=== PATIENT | male | born 1970 | race Caucasian/White ===

== ENCOUNTER 2019-05-18 08:28 | Outpatient (CLI) | payer OTHER ==
[2019-05-18 12:26] LABS: BASOPHILS # (AUTO) 0.1 10^3/uL (0.0-0.1); BASOPHILS % (AUTO) 1.2 %; EOSINOPHILS # (AUTO) 0.4 10^3/uL (0.0-0.7); HGB - HEMOGLOBIN 15.8 g/dL (14.0-18.0); LYMPHOCYTES # (AUTO) 1.8 10^3/uL (1.5-3.5); LYMPHOCYTES % (AUTO) 31.5 %; MEAN CORPUSCULAR HEMOGLOBIN 30.6 pg (27.0-31.0); MEAN CORPUSCULAR HGB CONC 32.5 g/dL (32.0-36.0); MEAN PLATELET VOLUME 9.7 fL (7.4-11.4); MONOCYTES # (AUTO) 0.4 10^3/uL (0.0-1.0); MONOCYTES % (AUTO) 6.3 %; NEUTROPHILS # (AUTO) 3.2 10^3/uL (1.5-6.6); NEUTROPHILS % (AUTO) 54.3 %; PLT - PLATELET COUNT 336 10^3/uL (130-450); RED BLOOD COUNT 5.17 10^6/uL (4.70-6.10); RED CELL DISTRIBUTION WIDTH 13.1 % (12.0-15.0); WHITE BLOOD COUNT 5.8 x10^3/uL (4.8-10.8)
[2019-05-18 12:48] LABS: HB2 TOTAL 16.4 g/dL; HEMOGLOBIN A1C 0.71 g/dL; HEMOGLOBIN A1C % 6.1 % (4.6-6.2)
[2019-05-18 12:56] LABS: ALBUMIN 4.4 g/dL (3.2-5.5); ALBUMIN/GLOBULIN RATIO 1.4 (1.0-2.2); ALKALINE PHOSPHATASE 55 IU/L (42-121); ALT ALANINE AMINOTRANSFERASE 29 IU/L (10-60); AST ASPARTATE AMINOTRANSFERASE 22 IU/L (10-42); BILIRUBIN,TOTAL 0.6 mg/dL (0.2-1.0); BUN - BLOOD UREA NITROGEN 13 mg/dL (6-20); CALCIUM 9.3 mg/dL (8.5-10.3); CARBON DIOXIDE - CO2 25 mmol/L (21-32); CHLORIDE 104 mmol/L (101-111); CHOL/HDL RATIO 4.4 (<5.0); CHOLESTEROL 145 mg/dL; CREATININE 0.8 mg/dL (0.6-1.2); GFR - MDRD 104 (>89); GLUCOSE 117 mg/dL (70-100); HDL CHOLESTEROL 33 mg/dL; LDL CHOLESTEROL,CALCULATED 89 mg/dL; LDL/HDL RATIO 2.7 (<3.6); SODIUM 138 mmol/L (135-145); TOTAL PROTEIN 7.5 g/dL (6.7-8.2); VLDL CHOLESTEROL 23 mg/dL
[2019-05-18 15:33] LABS: LITHIUM 0.32 mmol/L
== END 2019-05-18 23:59 | disposition home or self-care (01) ==
LOC: LAB.N 08:28
PROVIDERS: ATTEND Physician Assistant Medical
DX: Z00.00 Encounter for general adult medical examination without abnormal findings (principal); E11.9 Type 2 diabetes mellitus without complications; F31.9 Bipolar disorder, unspecified; I10 Essential (primary) hypertension; Z79.899 Other long term (current) drug therapy
CPT/HCPCS: 36415; 80053; 80061; 80178; 82306; 83036; 83721; 84443; 85025

== ENCOUNTER 2021-06-12 09:46 | Outpatient (CLI) | payer OTHER ==
--- NOTE | 2021-06-12 17:23 | XRAY Report ---
PROCEDURE: Hip w/Pelvis 2-3V RT INDICATIONS: RIGHT HIP PAIN TECHNIQUE: AP pelvis with lateral view(s) of the right hip(s). COMPARISON: None. FINDINGS: Bones: No fractures or dislocations. Pelvic ring appears intact. No suspicious bony lesions. Soft tissues: The visualized bowel gas pattern is normal. No suspicious soft tissue calcifications. IMPRESSION: No acute radiographic findings. No findings to explain patient's right hip pain. Reviewed by: Eliza Ramey MD on 06/12/2021 5:22 PM PST Approved by: Eliza Ramey MD on 06/12/2021 5:22 PM PST Station ID: [id number]
== END 2021-06-12 09:47 | disposition home or self-care (01) ==
LOC: DI.N 09:46
PROVIDERS: ATTEND Physician Assistant
DX: M25.551 Pain in right hip (principal); M79.18 Myalgia, other site